=== PATIENT | male | born 2000 | race Caucasian/White ===

== ENCOUNTER 2021-11-29 13:06 | Emergency (ER) | payer OTHER, SELFPAY ==
[2021-11-29 13:17] VITALS: BP 154/92; PULSE 99; RESP 16; TEMP 37.1; O2SAT 97; BMI 30.1
--- NOTE | 2021-11-29 17:15 | ED_ITS ---
HPI - Extremity Injury (Lower) General Chief Complaint: Extremity Injury, Lower Stated Complaint: l foot ingrown toenail Time Seen by Provider: 11/29/21 17:11 Source: patient Mode of arrival: ambulatory Limitations: no limitations History of Present Illness HPI Narrative: This is a 21-year-old male presenting to the emergency department with left great toe redness, swelling and pain. Patient reports that this has been going on for month, he tells me has an ingrown toenail and has not been able to get in to see Podiatry. Patient denies numbness, tingling, pain with range of motion to lower extremity toes, also denies fevers, chills, chest pain, shortness of breath. Related Data Previous Rx's Medication Instructions Recorded cephalexin 500 mg tablet 500 mg PO Q6H 7 days #28 tabs 11/29/21 Allergies Allergy/AdvReac Type Severity Reaction Status Date / Time Unable to Assess Allergy Unverified 11/29/21 17:12 Review of Systems Review of Systems: Constitutional : No Weight loss, No Fever, No Chills, No Fatigue, No Malaise ENT/Mouth : No sore throat, No Rhinorrhea Eyes: No Eye Pain, No Swelling, No Redness Cardiovascular : No Chest Pain, No SOB, No Dyspnea on Exertion, No Orthopnea, No Edema, No Palpitations Respiratory : No Cough, No Sputum, No Wheezing Gastrointestinal : No Nausea, No Vomiting, No Diarrhea, No Constipation, No abdominal Pain, No Hematochezia, No Melena Genitourinary : No Dysuria, No Urinary Frequency, No Hematuria, Musculoskeletal : No joint pain, No Myalgias, No Joint Swelling Skin : No Skin Lesions, No rash, + ingrown toe nail Neuro : No Weakness, No Numbness, No Dizziness, No Headache Psych : No Anxiety/Panic, No Depression All other systems reviewed and are negative Yes all other systems are reviewed and are negative [facility] Past Medical History Attestation statement: The following information was validated with the patient. Source: old records reviewed and nursing notes reviewed Social History Social History Advance Directives: No Advance Directives Information Provided: No Physical Exam Vital Signs: Vital Signs: Last Vital Signs Temp 98.8 F 11/29/21 13:17 Pulse 99 11/29/21 13:17 Resp 16 11/29/21 13:17 BP 154/92 H 11/29/21 13:17 Pulse Ox 97 11/29/21 13:17 O2 Del Method 11/29/21 13:17 BMI result Body Mass Index 30.1 VSS Appearance: Alert.? Oriented X3.? No acute distress.? Head: Normocephalic, atraumatic, no step-offs or deformities Eyes: Pupils equal, round and reactive to light.? CVS: Normal heart rate and rhythm.? Pulses normal.? Respiratory: No respiratory distress.? Breath sounds normal.? Abdomen: Soft and nontender.? Skin: Skin warm and dry.? Normal skin color.? Normal skin turgor.? Extremities: No lower extremity edema.? No calf ttp. 5/5 strength to bilateral upper and lower extremities Full rom of toes b/l + ingrown left great toe w/ cellulitis ( image attached) NV intact to b/l lower extremities Neuro: Oriented X 3.? No motor deficit.? No sensory deficit. CN 2-12 intact Course Reevaluation(s) Reevaluation #1: Educated patient on worrisome signs and symptoms and when to return. Advised to follow up with Podiatry, give them information to [facility]. At this time I feel comfortable discharge home. Time: 17:17 MDM - Extremity Injury (Lower) MDM Narrative Medical decision making narrative: 1715 21 yo M presents w/ ingrown toe nail to left great toe w/ cellulitis PE w/ left great toe ingrown toenail with overlying cellulitis and slight discharge. Vital signs are stable. Plan at this time is to discharge patient home with antibiotics, patient does not have a MRSA history therefore does not need doxycycline, will discharge home on Keflex q.6 hours 500 mg. Medical Records Attestation: I reviewed the patient's medical records. Lab Data Attestation: I reviewed the patient's lab results. Critical Care Time Critical Care Time Critical Care Time: No Discharge Plan Discharge Clinical Impression: Ingrown toenail Patient Disposition: Home, Self-Care Instructions: Ingrown Nail (ED) Additional Instructions: Take your medications as prescribed. If you were prescribed antibiotics today, it is important that you take your medication to their entirety, do not skip any doses, do not finish them early. Follow-up with your primary care provider this week. Return to the emergency department with new or worsening symptoms. Such as fevers, chills, chest pain, shortness of breath, nausea, vomiting, dizziness, headache, vision changes, lethargy In case of emergency call 911 The soak the affected foot in Epsom salt 3 to 4 times a day for 20-30 minutes at a time. Follow-up with podiatry as soon as possible. [facility] [address] [place] [address] Prescriptions: New cephalexin 500 mg tablet 500 mg PO Q6H 7 Days Qty: 28 0RF Referrals: Physician,None [Primary Care Provider] - 2 days Stand Alone Forms: Work/School Release
== END 2021-11-29 17:48 | disposition home or self-care (01) ==
PROVIDERS: Emergency Provider Internal Medicine
DX: L60.0 Ingrowing nail (principal)
CPT/HCPCS: 99282; 99283